=== PATIENT | male | born 1980 | race Caucasian/White ===

== ENCOUNTER 2023-12-14 13:26 | Emergency (ER) | payer MEDICAID ==
[~2023-12-14] VITALS: Ht 185.4 cm; Wt 79.5 kg
[2023-12-14 13:42] VITALS: BP 130/85; PULSE 73; RESP 18; TEMP 97.8; O2SAT 98
[2023-12-14] MEDS ORDERED: DIAZ10TA4 PO (15:22)
== END 2023-12-14 15:31 | disposition home or self-care (01) ==
LOC: ER 13:26
DX: G47.00 Insomnia, unspecified (principal); Z76.0 Encounter for issue of repeat prescription
CPT/HCPCS: 99281; 99283

== ENCOUNTER 2024-03-10 07:11 | Emergency (ER) | payer MEDICAID ==
[~2024-03-10] VITALS: Ht 185.4 cm; Wt 93.6 kg
[~2024-03-10 07:11] MED LIST: DIAZ10TA4 PO
[2024-03-10 07:20] VITALS: BP 124/93; PULSE 94; RESP 18; O2SAT 99
[2024-03-10] MEDS: diazepam 5mg tablet PO ONE (07:42)
[2024-03-10 07:46] VITALS: TEMP 97.3
== END 2024-03-10 07:48 | disposition home or self-care (01) ==
LOC: ER 07:11
DX: F41.9 Anxiety disorder, unspecified (principal); Z76.0 Encounter for issue of repeat prescription
CPT/HCPCS: 99283